=== PATIENT | female | born 1980 | race Caucasian/White ===

== ENCOUNTER 2023-05-07 14:40 | Emergency (ER) | payer MEDICAID ==
[~2023-05-07] VITALS: Ht 160 cm; Wt 68.1 kg
[2023-05-07 16:46] VITALS: BP 122/84
[2023-05-07 17:00] VITALS: BP 120/88
[2023-05-07 17:15] VITALS: BP 117/77
[2023-05-07 17:30] VITALS: BP 124/82
[2023-05-07] MEDS ORDERED: VIBRAMYCIN100 M2 PO (17:57)
[2023-05-07] MEDS ORDERED: LORTAB 5/3255 MG PO (17:58)
[2023-05-07 18:09] VITALS: BP 124/82
== END 2023-05-07 18:15 | disposition home or self-care (01) ==
LOC: ED 14:40
DX: L03.011 Cellulitis of right finger (principal)